=== PATIENT | female | born 1940 | race Hispanic/Latino ===

== ENCOUNTER 2017-06-22 05:54 | Inpatient (IN) | payer MEDICARE ==
[2017-06-22] VITALS (7 sets, daily range): BP systolic 138–194; BP diastolic 45–89
[~2017-06-22] VITALS: Ht 160 cm; Wt 59.0 kg
[2017-06-22] MEDS: Albuterol ud Inhalation HHN SCH ×2 (06:32→06:33)
[2017-06-22] MEDS: Ipratropium 0.02% Inh Soln 2.5ml UD HHN SCH ×7 (06:32→23:47)
--- NOTE | 2017-06-22 06:33 | Emergency Room Report ---
History of Present Illness General Chief Complaint: Upper Respiratory Illness Source: Patient Present Illness HPI 76-year-old female with pmhx breast carcinoma, status post resection, Hodgkin's lymphoma, all in remission, COPD, former smoker p/w cough fever and generalized weakness for one day. Pt states cough is productive, with clear non bloody sputum. + fever chills sob. Denies chest pain. States that her is sick , states that she had a recent hospitalization for pneumonia about a month ago at [facility] Allergies: Coded Allergies: No Known Allergies (Unverified , 06/22/17) Patient History Past Medical History: see triage record Past Surgical History: none Pertinent Family History: none Reviewed Nursing Documentation: PMH: Agreed, PSxH: Agreed Nursing Documentation-PMH Past Medical History: No History, Except For Hx Hypertension: Yes Hx COPD: Yes Hx Diabetes: Yes - dm2 Review of Systems All Other Systems: negative except mentioned in HPI Physical Exam Vital Signs Date Time Temp Pulse Resp B/P (MAP) Pulse Ox O2 Delivery O2 Flow Rate FiO2 06/22/17 05:42 99.0 137 16 229/72 96 Nasal Cannula 4.0 Sp02 EP Interpretation: reviewed, normal General Appearance: alert, GCS 15, non-toxic, moderate distress Head: normocephalic, atraumatic Eyes: bilateral eye normal inspection, bilateral eye PERRL, bilateral eye EOMI ENT: normal ENT inspection, normal pharynx, normal voice, moist mucus membranes Neck: normal inspection, full range of motion, supple Respiratory: other - mild exp wheezing b/l, tachypneic Cardiovascular #1: no edema, tachycardia Cardiovascular #2: 2+ radial (R), 2+ radial (L) Gastrointestinal: normal inspection, non tender, soft, non-distended, no guarding Musculoskeletal: normal inspection, back normal, normal range of motion, non- tender Neurologic: normal inspection, alert, oriented x3, responsive, motor strength/ tone normal, sensory intact, normal gait, speech normal Psychiatric: normal inspection, judgement/insight normal, memory normal Skin: normal inspection, normal color, no rash, warm/dry, well hydrated, normal turgor Medical Decision Making ER Course 76-year-old female with cough fever chills for one day DDX: Viral URI vs. pneumonia Plan: Routine labs, chest x-ray, EKG nebs tx Signed out patient to Dr. Hernández 76-year-old female with fever chills cough Pending labs Pending admission EKG Diagnostic Results EP Interpretation: Yes Rate: Tachycardic Rhythm: NSR ST Segments: No acute changes ASA given to patient: No Rhythm Strip EP Interpretation: Yes Rate: 117 Rhythm: NSR, no PVCs, no ectopy Last Vital Signs Date Time Temp Pulse Resp B/P (MAP) Pulse Ox O2 Delivery O2 Flow Rate FiO2 06/22/17 05:42 99.0 137 16 229/72 96 Nasal Cannula 4.0 Referrals: NON PHYSICIAN (PCP) Lien Brewer M.D. Jun 22, 2017 06:33
[2017-06-22 07:24] LABS: HEMATOCRIT 22.5 % (37.0-47.0); HEMOGLOBIN 7.1 G/DL (12.0-16.0); MEAN CORPUSCULAR VOLUME 104 FL (80-99); PLATELET COUNT 31 K/UL (150-450); RED BLOOD COUNT 2.15 M/UL (4.20-5.40); WHITE BLOOD COUNT 4.6 K/UL (4.8-10.8)
[2017-06-22] MEDS ORDERED: guaiFENesin 100mg/5ml Liq ud ORAL ONE (07:30)
[2017-06-22] MEDS ORDERED: Solu-MEDROL 125mg Inj IVP ONE (07:30)
[2017-06-22 07:32] LABS: ANION GAP 15 mmol/L (5-15); BLOOD UREA NITROGEN 31 mg/dL (7-18); CALCIUM 7.4 MG/DL (8.5-10.1); CARBON DIOXIDE 17 MMOL/L (21-32); CHLORIDE 107 MMOL/L (98-107); CREATININE 1.8 MG/DL (0.55-1.30); POTASSIUM 3.8 MMOL/L (3.5-5.1); SODIUM 139 MMOL/L (136-145)
[2017-06-22 07:47] LABS: ALANINE AMINOTRANSFERASE 16 U/L (12-78); ALBUMIN 2.7 G/DL (3.4-5.0); ALBUMIN/GLOBULIN RATIO 0.8 (1.0-2.7); ALKALINE PHOSPHATASE 69 U/L (46-116); ASPARTATE AMINO TRANSFERASE 37 U/L (15-37); BILIRUBIN,TOTAL 1.3 MG/DL (0.2-1.0); CREATINE KINASE 75 U/L (26-308)
[2017-06-22 07:48] LABS: BILIRUBIN,DIRECT 0.8 MG/DL (0.0-0.3)
[2017-06-22] MEDS ORDERED: Oseltamivir 75mg cap ORAL SCH (09:00)
[2017-06-22 09:34] LABS: APPEARANCE,URINE SLIGHTLY CLOUDY; BILIRUBIN, URINE NEGATIVE (NEGATIVE); GLUCOSE, URINE (UA) NEGATIVE (NEGATIVE); KETONES,URINE 1+ (NEGATIVE); LEUKOCYTE ESTERASE ,URINE 2+ (NEGATIVE); NITRITE,URINE NEGATIVE (NEGATIVE); PH,URINE 5 (4.5-8.0); PROTEIN,URINE 4+ (NEGATIVE); UROBILINOGEN,URINE 1 MG/DL (0.0-1.0)
[2017-06-22 09:42] LABS: COLOR,URINE YELLOW
[2017-06-22] MEDS ORDERED: cefTRIAXone 1 GM in NS 55 ML IVPB ONE (10:45)
--- NOTE | 2017-06-22 11:03 | Diagnostic Imaging Report ---
Indication: Cough Comparison: 09/04/2005 A single view chest radiograph was obtained. Findings: Vascular prominence and interstitial edema is suspected. Heart is borderline enlarged. Bones are osteopenic. Surgical clips noted in the left axilla. Left mastectomy noted. IMPRESSION: Interstitial pneumonitis versus mild CHF. Please correlate clinically. Stigmata of left breast carcinoma with mastectomy and axillary dissection
[2017-06-22] MEDS ORDERED: Nitroglycerin Subl 0.4mg tab SL PRN (14:45)
[2017-06-22] MEDS ORDERED: Milk of Magnesia 30ml Ud ORAL PRN (14:45)
--- NOTE | 2017-06-22 15:45 | Consultation ---
DATE OF CONSULTATION: 06/22/2017 PULMONARY CONSULTATION CONSULTING PHYSICIAN: Fabian Nichole M.D. CHIEF COMPLAINT: Fever and shortness of breath. HISTORY OF PRESENT ILLNESS: The patient is a 76-year-old woman with a history of distant breast cancer and mastectomy and previously treated lymphoma, who presents with fever and shortness of breath for several days. Her has been ill. She was evaluated and found to have 102 fever and some respiratory distress and admission was arranged. Influenza studies are pending. The patient did have a flu shot. The patient has a history of COPD and is on home nebulizer treatments and sees a clay artisan Dr. Frias. She has quit smoking about three years ago. She has been coughing and producing some clear sputum, but no hemoptysis. PAST MEDICAL HISTORY: Breast cancer, Hodgkin lymphoma, hypertension, COPD as noted above, and diabetes. REVIEW OF SYSTEMS: She is able to care for herself. She has no chest pain. There is no nausea, vomiting, or diarrhea. She has no ankle edema. PHYSICAL EXAMINATION: VITAL SIGNS: Showed temperature of 102. Her blood pressure was elevated at 229/72 on presentation and improved to 194/62. She is tachycardic at 145 per minute, respirations 22, and saturations 100%. GENERAL: The skin is hot and dry. The patient appears to be in mild respiratory distress. HEENT: The head is normocephalic. NECK: No jugular venous distention. CHEST: Decreased air entry. CARDIAC: Rhythm is regular. Tachycardia. ABDOMEN: Soft and nontender. EXTREMITIES: No clubbing, cyanosis, or edema. DIAGNOSTIC DATA: Chest x-ray shows no acute infiltrate. LABORATORY DATA: Laboratory studies show the white count is 4600, hematocrit is 22.5, hemoglobin 7.1, and platelet count is 31,000. There are reduced lymphocytes. Chemistry shows creatinine is 1.8, bicarbonate is 17, bilirubin is slightly elevated at 1.3, and albumin is 2.7. IMPRESSION: 1. Viral syndrome, likely influenza, serology pending. 2. Chronic obstructive pulmonary disease exacerbation. 3. Severe hypertension. 4. Severe anemia. 5. History of lymphoma and breast cancer. 6. Severe thrombocytopenia. 7. Chronic kidney disease, possible dehydration. 8. Moderate protein-calorie malnutrition. PLAN: The patient will be treated with respiratory therapy, antiviral medications, and antihypertensive treatments. She may require blood transfusion. I discussed the case with Dr. Rowland. Thank you for asking me to see her in consultation. I will follow closely with you. Fabian Nichole M.D. DRWalt RICKS JOB#: [id number] CC: Oliver Rowland M.D.; Fax#: [phone]
--- NOTE | 2017-06-22 16:30 | History and Physical Report ---
DATE OF ADMISSION: 06/22/2017 CHIEF COMPLAINT AND REASON FOR HOSPITALIZATION: The patient admitted with fever and shortness of breath. HISTORY OF PRESENT ILLNESS: The patient is a 76-year-old lady, who has a history of COPD and lymphoma with chemotherapy, last about a year ago. Apparently, she has had two courses of chemotherapy, starting five years ago. She is only a fair historian. She is in zkpi-ji-yufinkrc distress and coughing and has severe anemia. PAST SURGICAL HISTORY: Include nasal surgery and left mastectomy 29 years ago. ALLERGIES: None known. MEDICATIONS: She uses inhalers. She cannot give me any details of the medications at home at this time. HABITS: She is a cigarette smoker about a pack a day most of her life, quit about a year ago. No alcohol or drugs. SOCIAL HISTORY: She lives with her , who has dementia. SYSTEM REVIEW: HEAD, EYES, EARS, NOSE, AND THROAT: Vision and hearing are good. ENDOCRINE: No known diabetes or thyroid disease. PULMONARY: History of COPD and chronic cough. CARDIAC: No angina or NC. GASTROINTESTINAL: She had GI bleed from peptic ulcer disease approximately in June 2015. There is a history of diverticular disease of the colon. She is not having any abdominal pain now. There is an occasional rectal bleed. It is not clear if this is hemorrhoid. GENITOURINARY: No dysuria or hematuria. She is incontinent. NEUROLOGIC: No CVA or seizures. MUSCULOSKELETAL: History of generalized weakness. No swollen joints. She uses a cane at home. PHYSICAL EXAMINATION: GENERAL: The patient is seen in the emergency room. She is alert, chronically ill-appearing, in adel-ex-ckoypjnv distress. VITAL SIGNS: Temperature 102, pulse 145, respirations 22, and pulse oximetry 100%. HEAD, EYES, EARS, NOSE, AND THROAT: Sclerae are nonicteric. Ocular motions intact in all directions. Oral mucosa is slightly dry. She is edentulous. NECK: No adenopathy or thyroid enlargement. BREASTS: No masses palpated. LUNGS: Distant breath sounds. Bilateral wheezing. Chmp-cp-wrgjfpvz distress. HEART: Regular rhythm and tachycardic. I hear no murmur. ABDOMEN: Soft without organomegaly or masses. EXTREMITIES: Showed trace to 1+ edema. NEUROLOGIC: She is alert and oriented. Cranial nerves are intact. She is a little bit tremulous and a poor historian and at this time, somewhat anxious. RECTAL: No masses. Light brown stool on the glove. There is a tinge of heme-positive at the edge of the stool, but major portion of the stool is negative and perhaps is traumatic. PERTINENT LABORATORIES: White count is 4.6 and hemoglobin is 7.1. Electrolytes, sodium 139, potassium 3.8, chloride 107, CO2 17, BUN 31, and creatinine 1.8. Lactic acid 1.7. Bilirubin 1.3. Albumin 2.7. IMPRESSION: 1. Presumably influenza. 2. Chronic obstructive pulmonary disease exacerbation. 3. Severe anemia and thrombocytopenia. 4. History of lymphoma. 5. History of breast cancer. 6. History of Do Not Resuscitate directive. PLAN: The patient will be given steroids, Tamiflu, nebulizer treatment, hydration. Her condition is serious. She may have sepsis in view of her tachycardia. Pulmonary consult has been done by Dr. Nichole, and the case was discussed. The patient agrees to transfusion. Oliver Rowland M.D. DR: SMITA JOB#: [id number] CC:
[2017-06-22] MEDS: Azithromycin 250mg tab ORAL SCH (17:08)
[2017-06-22] MEDS: Solu-MEDROL 40mg Inj IVP SCH ×2 (17:08→22:39)
[2017-06-22] MEDS: HydrALAZINE 25mg tab ORAL SCH (18:53)
[2017-06-22] MEDS: Sodium Citrate 30ml ORAL SCH (20:23)
[2017-06-22] MEDS: Docusate 100mg cap ORAL SCH (21:00)
[2017-06-22] MEDS: Guaifenesin/DM 10ml syrup ORAL PRN (22:39)
[2017-06-23] MEDS: Ipratropium 0.02% Inh Soln 2.5ml UD HHN SCH ×5 (03:00→19:00)
[2017-06-23 04:46] VITALS: BP 153/66
[2017-06-23] MEDS: Solu-MEDROL 40mg Inj IVP SCH ×2 (05:55→14:07)
[2017-06-23] MEDS: NovoLOG Insulin Flexpen SUBQ SCH ×3 (07:18→17:24)
[2017-06-23 08:00] VITALS: BP 164/88
[2017-06-23] MEDS: Guaifenesin/DM 10ml syrup ORAL PRN (08:33)
[2017-06-23] MEDS: Sodium Citrate 30ml ORAL SCH ×2 (08:34→12:43)
[2017-06-23] MEDS: Azithromycin 250mg tab ORAL SCH (08:34)
[2017-06-23] MEDS: HydrALAZINE 25mg tab ORAL SCH ×3 (08:35→17:24)
[2017-06-23] MEDS: Docusate 100mg cap ORAL SCH (08:35)
[2017-06-23] MEDS ORDERED: dilTIAZem HCl CD 180mg cap ORAL SCH (09:00)
[2017-06-23] MEDS ORDERED: cefTRIAXone 1 GM in NS 55 ML IVPB SCH (09:00)
--- NOTE | 2017-06-23 09:39 | Diagnostic Imaging Report ---
Indication: Dyspnea Technique: XRAY Chest 1v Comparison: 06/22/2017 Findings: Heart size and mediastinal contours are stable. There is overall worsening of aeration with increased interstitial opacification/edema and development of hazy bilateral airspace opacities. There is persistent small right pleural effusion. There is no definite pneumothorax. No acute osseous abnormality is seen. Surgical clips noted in the left axilla. Patient again noted to be status post left mastectomy. Impression: Overall worsening of aeration bilaterally with increasing interstitial opacification and development of patchy bilateral airspace opacities. Findings may be related to worsening CHF. Multifocal pneumonia or additional etiologies not entirely excluded. Clinical correlation and follow-up exam recommended.
--- NOTE | 2017-06-23 10:51 | General Progress Note ---
Assessment/Plan Problem List: (1) Lymphoma ICD Codes: C85.90 - Non-Hodgkin lymphoma, unspecified, unspecified site SNOMED: 229650011 (2) Pancytopenia ICD Codes: D61.818 - Other pancytopenia SNOMED: 121693938 (3) COPD with exacerbation ICD Codes: J44.1 - Chronic obstructive pulmonary disease with (acute) exacerbation SNOMED: 238618021524275 (4) CHF (congestive heart failure), NYHA class III ICD Codes: I50.9 - Heart failure, unspecified SNOMED: 482824753, 022062623 (5) Bronchitis ICD Codes: J40 - Bronchitis, not specified as acute or chronic SNOMED: 19332766 (6) COPD (chronic obstructive pulmonary disease) ICD Codes: J44.9 - Chronic obstructive pulmonary disease, unspecified SNOMED: 64183058 (7) Upper respiratory infection ICD Codes: J06.9 - Acute upper respiratory infection, unspecified SNOMED: 92778723 (8) Flu-like symptoms ICD Codes: R68.89 - Other general symptoms and signs SNOMED: 792051659 Assessment/Plan transfused,lasix,steroids,hhn Subjective Constitutional: Reports: weakness HEENT: Reports: no symptoms Cardiovascular: Reports: palpitations Respiratory: Reports: SOB at rest Gastrointestinal/Abdominal: Reports: no symptoms Genitourinary: Reports: frequency Neurologic/Psychiatric: Reports: no symptoms Endocrine: Reports: no symptoms Allergies: Coded Allergies: No Known Allergies (Unverified , 06/22/17) Objective Last 24 Hour Vital Signs Date Time Temp Pulse Resp B/P (MAP) Pulse Ox O2 Delivery O2 Flow Rate FiO2 06/23/17 08:35 164/88 06/23/17 08:35 164/88 06/23/17 08:34 112 164/88 06/23/17 08:00 96.4 112 20 164/88 100 Nasal Cannula 2.0 06/23/17 07:47 109 20 100 Nasal Cannula 2.0 06/23/17 07:47 104 25 99 Nasal Cannula 2.0 28 06/23/17 07:47 99 Nasal Cannula 2.0 28 06/23/17 07:47 Nasal Cannula 2.0 06/23/17 07:03 96.8 06/23/17 06:23 103 103 06/23/17 04:46 96.8 103 19 153/66 92 Room Air 06/23/17 04:00 101 06/23/17 03:41 Nasal Cannula 06/23/17 03:41 Nasal Cannula 06/23/17 00:00 107 06/22/17 23:47 104 25 99 Nasal Cannula 2.0 06/22/17 23:47 116 20 100 Nasal Cannula 2.0 06/22/17 21:24 113 06/22/17 21:10 102.0 107 30 171/65 99 Nasal Cannula 2.0 06/22/17 21:00 107 30 171/65 99 Nasal Cannula 2.0 06/22/17 21:00 Room Air 06/22/17 21:00 Room Air 06/22/17 20:59 Room Air 06/22/17 19:30 112 20 99 Nasal Cannula 2.0 06/22/17 19:30 109 25 94 Nasal Cannula 2.0 06/22/17 19:00 106 18 138/89 100 Room Air 06/22/17 18:55 177/70 06/22/17 18:53 177/70 06/22/17 16:00 145 33 174/72 100 Room Air 06/22/17 14:51 110 22 99 Nasal Cannula 2.0 06/22/17 14:41 109 22 98 Nasal Cannula 2.0 06/22/17 13:30 112 35 166/69 100 Room Air 06/22/17 11:00 121 40 155/54 98 Room Air 06/22/17 10:56 130 24 99 Nasal Cannula 2.0 28 Intake and Output 06/22/17 06/23/17 19:00 07:00 Output Total 400 ml Balance -400 ml Output Urine Total 400 ml # Bowel Movements 1 Laboratory Tests 06/22/17 20:10: Vitamin B12 Level > 2000H Height (Feet): 5 Height (Inches): 3.00 Weight (Pounds): 130 General Appearance: moderate distress EENT: normal ENT inspection Neck: normal alignment Cardiovascular: regular rhythm Respiratory/Chest: respiratory distress, accessory muscle use, rhonchi - bilaterally Abdomen: non tender Extremities: no calf tenderness Edema: trace edema Neurologic: bread packer II-XII grossly normal JOEL CAMPUZANO Jun 23, 2017 10:51
[2017-06-23] MEDS ORDERED: Spironolactone 25mg tab ORAL SCH (11:00)
[2017-06-23 12:00] VITALS: BP 156/76
[2017-06-23 12:07] LABS: HEMATOCRIT 29.2 % (37.0-47.0); HEMOGLOBIN 9.6 G/DL (12.0-16.0); MEAN CORPUSCULAR VOLUME 96 FL (80-99); PLATELET COUNT 49 K/UL (150-450); RED BLOOD COUNT 3.05 M/UL (4.20-5.40); RED CELL DISTRIBUTION WIDTH 18.8 % (11.6-14.8); WHITE BLOOD COUNT 12.6 K/UL (4.8-10.8)
[2017-06-23 12:17] LABS: ALANINE AMINOTRANSFERASE 20 U/L (12-78); ALBUMIN 2.5 G/DL (3.4-5.0); ALBUMIN/GLOBULIN RATIO 0.7 (1.0-2.7); ALKALINE PHOSPHATASE 60 U/L (46-116); ANION GAP 19 mmol/L (5-15); ASPARTATE AMINO TRANSFERASE 66 U/L (15-37); BLOOD UREA NITROGEN 54 mg/dL (7-18); CALCIUM 7.4 MG/DL (8.5-10.1); CARBON DIOXIDE 15 MMOL/L (21-32); CHLORIDE 103 MMOL/L (98-107); CREATININE 1.9 MG/DL (0.55-1.30); POTASSIUM 4.5 MMOL/L (3.5-5.1); SODIUM 137 MMOL/L (136-145)
[2017-06-23] MEDS ORDERED: Imdur 30mg tab ORAL SCH (13:00)
[2017-06-23] MEDS ORDERED: Metoprolol Tartrate 12.5mg TAB ORAL SCH (13:00)
--- NOTE | 2017-06-23 13:19 | Pulmonology Progress Note ---
Assessment/Plan Assessment/Plan 1. Viral syndrome, possible influenza, serology neg. 2. Chronic obstructive pulmonary disease exacerbation. 3. Severe hypertension. 4. Severe anemia, transfused. 5. History of lymphoma and breast cancer. 6. Severe thrombocytopenia, better 7. Chronic kidney disease 8. Moderate protein-calorie malnutrition. 9. CHF 10. NSTEMI disc w son, Dr Rowland looks better troponin high BNP >35k lower dose Tamiflu Lasix HHN Subjective Allergies: Coded Allergies: No Known Allergies (Unverified , 06/22/17) Objective Last 24 Hour Vital Signs Date Time Temp Pulse Resp B/P (MAP) Pulse Ox O2 Delivery O2 Flow Rate FiO2 06/23/17 12:50 164/88 06/23/17 10:50 105 20 100 Nasal Cannula 2.0 06/23/17 10:45 101 24 98 Nasal Cannula 2.0 06/23/17 08:35 164/88 06/23/17 08:35 164/88 06/23/17 08:34 112 164/88 06/23/17 08:00 96.4 112 20 164/88 100 Nasal Cannula 2.0 06/23/17 07:47 109 20 100 Nasal Cannula 2.0 28 06/23/17 07:47 104 25 99 Nasal Cannula 2.0 28 06/23/17 07:47 99 Nasal Cannula 2.0 28 06/23/17 07:47 Nasal Cannula 2.0 06/23/17 07:03 96.8 06/23/17 06:23 103 103 06/23/17 04:46 96.8 103 19 153/66 92 Room Air 06/23/17 04:00 101 06/23/17 03:41 Nasal Cannula 06/23/17 03:41 Nasal Cannula 06/23/17 00:00 107 06/22/17 23:47 104 25 99 Nasal Cannula 2.0 28 06/22/17 23:47 116 20 100 Nasal Cannula 2.0 06/22/17 21:24 113 06/22/17 21:10 102.0 107 30 171/65 99 Nasal Cannula 2.0 28 06/22/17 21:00 107 30 171/65 99 Nasal Cannula 2.0 06/22/17 21:00 Room Air 06/22/17 21:00 Room Air 06/22/17 20:59 Room Air 06/22/17 19:30 112 20 99 Nasal Cannula 2.0 28 06/22/17 19:30 109 25 94 Nasal Cannula 2.0 28 06/22/17 19:00 106 18 138/89 100 Room Air 06/22/17 18:55 177/70 06/22/17 18:53 177/70 06/22/17 16:00 145 33 174/72 100 Room Air 06/22/17 14:51 110 22 99 Nasal Cannula 2.0 06/22/17 14:41 109 22 98 Nasal Cannula 2.0 28 06/22/17 13:30 112 35 166/69 100 Room Air Intake and Output 06/22/17 06/23/17 19:00 07:00 Output Total 400 ml Balance -400 ml Output Urine Total 400 ml # Bowel Movements 1 Microbiology Date/Time Source Procedure Growth Status 06/22/17 08:00 Nasal Nares Influenza Types A,B Antigen (SAMUEL) - Final Complete 06/22/17 08:45 Urine,Clean Catch Urine Culture - Preliminary Gram Negative Eliseo Resulted Laboratory Tests 06/22/17 20:10: Vitamin B12 Level > 2000H 06/23/17 11:30: White Blood Count 12.6#H, Red Blood Count 3.05L, Hemoglobin 9.6#L, Hematocrit 29.2L, Mean Corpuscular Volume 96, Mean Corpuscular Hemoglobin 31.5H, Mean Corpuscular Hemoglobin Concent 32.9, Red Cell Distribution Width 18.8H, Platelet Count 49#L, Mean Platelet Volume 12.2H, Neutrophils (%) (Auto) , Lymphocytes (%) (Auto) , Monocytes (%) (Auto) , Eosinophils (%) (Auto) , Basophils (%) (Auto) , Differential Total Cells Counted 100, Neutrophils % ( Manual) 84H, Lymphocytes % (Manual) 3L, Monocytes % (Manual) 8, Eosinophils % ( Manual) 0, Basophils % (Manual) 0, Band Neutrophils 5, Platelet Estimate DecreasedL, Platelet Morphology Normal, Hypochromasia , Anisocytosis 1+, Sodium Level 137, Potassium Level 4.5, Chloride Level 103, Carbon Dioxide Level 15L, Anion Gap 19H, Blood Urea Nitrogen 54H, Creatinine 1.9H, Estimat Glomerular Filtration Rate , Glucose Level 288#H, Calcium Level 7.4L, Total Bilirubin 1.0, Aspartate Amino Transf (AST/SGOT) 66H, Alanine Aminotransferase (ALT/SGPT) 20, Alkaline Phosphatase 60, Troponin I 9.110H, Pro-B-Type Natriuretic Peptide > 50508G, Total Protein 5.9L, Albumin 2.5L, Globulin 3.4, Albumin/Globulin Ratio 0.7L Current Medications Medications (Trade) Dose Ordered Sig/Lorena Route PRN Reason Start Time Stop Time Status Last Admin Dose Admin Acetaminophen (Tylenol) 650 mg Q4H PRN ORAL Mild Pain (Pain Scale 1-3) 06/22/17 14:45 07/22/17 14:44 06/23/17 05:56 Acetaminophen (Tylenol) 650 mg Q4H PRN ORAL fever 06/22/17 14:45 07/22/17 14:44 Azithromycin (Zithromax) 250 mg DAILY ORAL 06/22/17 17:00 06/29/17 16:59 06/23/17 08:34 Ceftriaxone Sodium 1 gm/ Sodium Chloride 55 ml @ 110 mls/hr DAILY IVPB 06/23/17 09:00 06/30/17 08:59 06/23/17 12:43 Clonidine HCl (Catapres) 0.1 mg BID ORAL 06/22/17 18:00 07/22/17 17:59 06/23/17 08:35 Dextrose (Dextrose 50%) STAT PRN IV Hypoglycemia 06/22/17 14:45 07/22/17 14:44 Dextrose (Dextrose 50%) STAT PRN IV Hypoglycemia 06/22/17 21:45 07/22/17 21:44 Diltiazem HCl (Cardizem CD) 180 mg DAILY ORAL 06/23/17 09:00 07/23/17 08:59 06/23/17 08:34 Docusate Sodium (Colace) 100 mg EVERY 12 HOURS ORAL 06/22/17 21:00 07/22/17 20:59 06/23/17 08:35 Furosemide (Lasix) 40 mg BID IV 06/23/17 11:00 07/23/17 10:59 06/23/17 12:44 Guaifenesin/ Dextromethorphan (Robitussin DM Syrup) 10 ml Q4H PRN ORAL For Cough 06/22/17 21:45 07/22/17 21:44 06/23/17 08:33 Hydralazine HCl (Apresoline) 25 mg TID ORAL 06/22/17 18:00 07/22/17 17:59 06/23/17 12:50 Insulin Aspart (NovoLOG) BEFORE MEALS AND HS SUBQ 06/23/17 06:30 07/23/17 06:29 06/23/17 12:49 Ipratropium [place] (Atrovent) 500 mcg Q4HRT HHN 06/22/17 10:00 06/27/17 09:59 06/23/17 10:48 Isosorbide Mononitrate (Imdur) 30 mg DAILY ORAL 06/23/17 13:00 07/23/17 12:59 Magnesium Hydroxide (Mom) 30 ml HSPRN PRN ORAL Constipation 06/22/17 14:45 07/22/17 14:44 Methylprednisolone Sodium Succinate (Solu-MEDROL) 40 mg EVERY 8 HOURS IVP 06/22/17 14:00 07/22/17 13:59 06/23/17 05:55 Metoprolol Tartrate (Lopressor) 12.5 mg Q12HR ORAL 06/23/17 13:00 07/23/17 12:59 Nitroglycerin (Ntg) 0.4 mg Q5M PRN SL Prn Chest Pain 06/22/17 14:45 07/22/17 14:44 Oseltamivir Phosphate (Tamiflu) 30 mg DAILY ORAL 06/23/17 09:00 06/27/17 08:59 06/23/17 09:12 Pantoprazole (Protonix) 40 mg DAILY ORAL 06/23/17 09:00 07/23/17 08:59 06/23/17 08:34 Potassium Chloride (K-Dur) 40 meq TWICE A DAY ORAL 06/23/17 11:00 07/23/17 10:59 06/23/17 12:45 Sodium Citrate (Bicitra) 30 ml TID ORAL 06/22/17 18:00 07/22/17 17:59 06/23/17 08:34 Spironolactone (Aldactone) 25 mg DAILY ORAL 06/23/17 11:00 07/23/17 10:59 06/23/17 12:44 CARMELITA UPTON Jun 23, 2017 13:19
--- NOTE | 2017-06-23 15:31 | Progress Note ---
DATE: 06/23/2017 CARDIOLOGY PROGRESS NOTE SUBJECTIVE: Blood pressure parameters remained elevated. The patient has less congestion and shortness of breath. She has temperatures up to 102 yesterday, but is afebrile today. OBJECTIVE: VITAL SIGNS: Blood pressure 153/66, pulse 103, and respirations 19. LUNGS: With rhonchi. CARDIAC: Regular. Normal S1 and S2. ABDOMEN: Soft. EXTREMITIES: No edema. LABORATORY DATA: Pending. IMPRESSION: 1. Influenza A respiratory infection. 2. Hypertensive urgency secondary to sinus tachycardia. 3. History of breast cancer and lymphoma. 4. Chronic obstructive pulmonary disease. 5. Anemia and thrombocytopenia. PLAN: 1. Continue steroids. 2. Inhaled bronchodilators. 3. Tamiflu. 4. Hydrate with hypotonic fluids with caution. 5. Continue hydralazine. 6. Add diltiazem, suboptimal blood pressure control. 7. Monitor volume status. 8. Check natriuretic peptide assay. 9. No additional diuresis planned at present. Allan Borrego M.D. DR: THIEN JOB#: [id number] CC:
--- NOTE | 2017-06-23 15:31 | Consultation ---
DATE OF CONSULTATION: 06/22/2017 CONSULTING PHYSICIAN: Allan Borrego M.D. REQUESTING PHYSICIAN: Oliver Rowland M.D. REASON FOR CONSULTATION: Evaluate for congestive heart failure in the setting of shortness of breath. HISTORY OF PRESENT ILLNESS: This is a 76-year-old female with history of breast cancer, mastectomy, and Hodgkin's lymphoma with chemotherapy, who presents to the emergency room with fevers and shortness of breath of several days duration. She apparently has ill contact at home, namely her . She has received the flu shot. She does have a history of chronic obstructive pulmonary disease. She is on chronic bronchodilator and she quit smoking only 3 years ago. The patient has not had any chest pain. No leg swelling. She has a history of severe hypertension but is unaware of any history of heart failure. PAST MEDICAL HISTORY: Breast cancer, Hodgkin's lymphoma, hypertension, COPD, and diabetes mellitus. REVIEW OF SYSTEMS: Otherwise unremarkable. MEDICATIONS: Reviewed and reconciled. SOCIAL HISTORY: The patient is 30 to 40 pack a year smoker. No alcohol or substance abuse. Just quit smoking less than year ago. PHYSICAL EXAMINATION: VITAL SIGNS: Temperature 102, blood pressure 229/72 in the emergency room, heart rate 145, respiratory rate 22. Vital signs today 171/65, pulse 107, respirations 30. Afebrile. LUNGS: Diminished breath sounds. No wheezing or rales. NECK: Jugular venous pressure normal. CARDIAC: Regular rhythm. Rapid rate. Normal S1, S2 with a fourth heart sound. ABDOMEN: Soft. EXTREMITIES: There is no extra edema of the extremities. LABORATORY DATA: Reviewed. IMPRESSION: 1. Viral syndrome. 2. Chronic obstructive pulmonary disease exacerbation. 3. Hypertensive urgency . 4. Anemia of chronic kidney disease. 5. History of lymphoma and breast cancer in remission from . 6. Chronic kidney disease. 7. Protein-calorie malnutrition. 8. Secondary sinus tachycardia. PLAN: 1. Antiviral therapy. 2. Respiratory hygiene. 3. Monitor blood counts and chemistry panel. 4. Transfuse if hemoglobin is less than 8 g. 5. Titrate antihypertensive regimen with caution. 6. Continue cardiac monitoring, presently no signs of volume overload. 7. No indication for diuresis. Allan Borrego M.D. DR: ROXANA JOB#: [id number] CC:
[2017-06-23 16:00] VITALS: BP 127/20
[2017-06-23] MEDS ORDERED: Sodium Bicarbonate 650mg Tab ORAL SCH (18:00)
[2017-06-23] MEDS ORDERED: Atorvastatin 80mg tab ORAL SCH (20:00)
[2017-06-23] MEDS ORDERED: Aspirin Baby 81mg ORAL SCH (20:00)
[2017-06-23 20:15] VITALS: BP 149/79
--- NOTE | 2017-06-23 20:18 | Cardiology Progress Note ---
Assessment/Plan Assessment/Plan INVASIVE CARDIOLOGY CONSULT 1. Acute anterolateral STEMI, ? the onset of the chest pain, first positive trop at 11:30 today, cardiology specialist, Dr. Rogers was notified for emergent transfer of the patient to [facility]. Loading dose of plavix 300mg and ASA 81mg were given after checking with the pharmacist. Due to thrombocytopenia, heparin derivatives are contra-indicated. Metoprolol dose was increased to decrease double product. Atorvastatin 80mg was given. Continue lasix. 2. Acute heart failure, echo is pending, Diltiazem is discontinued. Will continue aldactone. 3. BRINA, ? baseline creat, could be worse with the diuretics. 4. Thrombocytopenia, the etiology unknown. Subjective Subjective Sinus rhythm at 70. The patient has 5-6/10 pressure like chest pain. She has 4 pillow orthopnea and SOB at rest. Objective Last 24 Hour Vital Signs Date Time Temp Pulse Resp B/P (MAP) Pulse Ox O2 Delivery O2 Flow Rate FiO2 06/23/17 17:25 127/20 06/23/17 17:24 127/20 06/23/17 16:00 82 06/23/17 16:00 97.0 85 18 127/20 97 Nasal Cannula 2.0 06/23/17 14:53 107 20 100 Nasal Cannula 2.0 06/23/17 14:50 100 24 90 Nasal Cannula 2.0 06/23/17 14:07 102 156/76 06/23/17 14:06 150/72 06/23/17 12:50 164/88 06/23/17 12:00 96.8 102 20 156/76 94 Nasal Cannula 2.0 06/23/17 12:00 101 06/23/17 10:50 105 20 100 Nasal Cannula 2.0 06/23/17 10:45 101 24 98 Nasal Cannula 2.0 28 06/23/17 08:35 164/88 06/23/17 08:35 164/88 06/23/17 08:34 112 164/88 06/23/17 08:00 96.4 112 20 164/88 100 Nasal Cannula 2.0 06/23/17 08:00 117 06/23/17 07:47 109 20 100 Nasal Cannula 2.0 06/23/17 07:47 104 25 99 Nasal Cannula 2.0 06/23/17 07:47 99 Nasal Cannula 2.0 06/23/17 07:47 Nasal Cannula 2.0 28 06/23/17 07:03 96.8 06/23/17 06:23 103 103 06/23/17 04:46 96.8 103 19 153/66 92 Room Air 06/23/17 04:00 101 06/23/17 03:41 Nasal Cannula 06/23/17 03:41 Nasal Cannula 06/23/17 00:00 107 06/22/17 23:47 104 25 99 Nasal Cannula 2.0 06/22/17 23:47 116 20 100 Nasal Cannula 2.0 06/22/17 21:24 113 06/22/17 21:10 102.0 107 30 171/65 99 Nasal Cannula 2.0 06/22/17 21:00 107 30 17165 99 Nasal Cannula 2.0 06/22/17 21:00 Room Air 06/22/17 21:00 Room Air 06/22/17 20:59 Room Air Intake and Output 06/22/17 06/23/17 19:00 07:00 Output Total 400 ml Balance -400 ml Output Urine Total 400 ml # Bowel Movements 1 2D Echo: Pending Laboratory Tests Test 06/22/17 20:10 06/23/17 11:30 06/23/17 19:23 Vitamin B12 Level > 2000 PG/ML (193-986) H White Blood Count 12.6 K/UL (4.8-10.8) #H Red Blood Count 3.05 M/UL (4.20-5.40) L Hemoglobin 9.6 G/DL (12.0-16.0) #L Hematocrit 29.2 % (37.0-47.0) L Mean Corpuscular Volume 96 FL (80-99) Mean Corpuscular Hemoglobin 31.5 PG (27.0-31.0) H Mean Corpuscular Hemoglobin Concent 32.9 G/DL (32.0-36.0) Red Cell Distribution Width 18.8 % (11.6-14.8) H Platelet Count 49 K/UL (150-450) #L Mean Platelet Volume 12.2 FL (6.5-10.1) H Neutrophils (%) (Auto) % (45.0-75.0) Lymphocytes (%) (Auto) % (20.0-45.0) Monocytes (%) (Auto) % (1.0-10.0) Eosinophils (%) (Auto) % (0.0-3.0) Basophils (%) (Auto) % (0.0-2.0) Differential Total Cells Counted 100 Neutrophils % (Manual) 84 % (45-75) H Lymphocytes % (Manual) 3 % (20-45) L Monocytes % (Manual) 8 % (1-10) Eosinophils % (Manual) 0 % (0-3) Basophils % (Manual) 0 % (0-2) Band Neutrophils 5 % (0-8) Platelet Estimate Decreased L Platelet Morphology Normal Hypochromasia Anisocytosis 1+ Sodium Level 137 MMOL/L (136-145) Potassium Level 4.5 MMOL/L (3.5-5.1) Chloride Level 103 MMOL/L (98-107) Carbon Dioxide Level 15 MMOL/L (21-32) L Anion Gap 19 mmol/L (5-15) H Blood Urea Nitrogen 54 mg/dL (7-18) H Creatinine 1.9 MG/DL (0.55-1.30) H Estimat Glomerular Filtration Rate mL/min (>60) Glucose Level 288 MG/DL (74-106) #H Calcium Level 7.4 MG/DL (8.5-10.1) L Total Bilirubin 1.0 MG/DL (0.2-1.0) Aspartate Amino Transf (AST/SGOT) 66 U/L (15-37) H Alanine Aminotransferase (ALT/SGPT) 20 U/L (12-78) Alkaline Phosphatase 60 U/L (46-116) Troponin I 9.110 ng/mL (0.000-0.056) Pending Pro-B-Type Natriuretic Peptide > 61759 pg/mL (0-125) H Total Protein 5.9 G/DL (6.4-8.2) L Albumin 2.5 G/DL (3.4-5.0) L Globulin 3.4 g/dL Albumin/Globulin Ratio 0.7 (1.0-2.7) L Microbiology Date/Time Source Procedure Growth Status 06/22/17 08:00 Nasal Nares Influenza Types A,B Antigen (SAMUEL) - Final Complete 06/22/17 08:45 Urine,Clean Catch Urine Culture - Preliminary Gram Negative Eliseo Resulted Objective HEENT: Normocephalic, Atraumatic, PERRLA, EOMI. NECK: Elevated JVD at 12 cm LUNGS: Diminished breath sounds with crackles CARDIAC: Regular rate rhythm. Distant S1, S2, cannot appreciate S# or S4. ABDOMEN: Soft, non-tender, non-distended. EXTREMITIES: B/L 2+ ankle edema MAY HERRING Jun 23, 2017 20:18
[2017-06-23] MEDS ORDERED: Metoprolol 25mg tab ORAL SCH (21:00)
--- NOTE | 2017-06-25 05:00 | Discharge Summary ---
DATE OF ADMISSION: 06/22/2017 DATE OF DISCHARGE: 06/23/2017 PERTINENT HISTORY: The patient admitted with fever and shortness of breath. There is history of COPD, prior treatment of lymphoma, chronic anemia, thrombocytopenia, diabetes. PERTINENT PHYSICAL FINDINGS: See the dictated history and physical. GENERAL: She is in moderate distress. VITAL SIGNS: She had temperature of 102, pulse 145. HEAD, EYES, EARS, NOSE, THROAT: Oral mucosa is slightly dry. She is edentulous. LUNGS: Distant breath sounds. Bilateral wheezing. Moderate distress. HEART: Regular rhythm and tachycardic. No murmur. ABDOMEN: Soft without organomegaly. EXTREMITIES: Trace to 1+ edema. NEUROLOGIC: She is a little tremulous. No focal findings. COURSE IN THE HOSPITAL: The patient was treated for acute exacerbation of COPD, CHF, possible influenza. She had hemoglobin of 7.1 and agreed to transfusion, which was done and hemoglobin came to 9.6. The patient also had evidence of chronic kidney disease, stage 3. She was diuresed for CHF. She was given broad-spectrum antibiotics for possible pneumonitis. The influenza test came back negative. She did develop an elevated troponin and was seen in cardiology consultation by Dr. Faulkner. After discussion with Dr. Faulkner, he arranged transfer to [facility] for possible cardiac catheterization. FINAL DIAGNOSES: 1. Chronic obstructive pulmonary disease with acute exacerbation. 2. Congestive heart failure, acute on chronic, with diastolic dysfunction. 3. Acute myocardial infarction. 4. Chronic kidney disease, stage 3. 5. History of lymphoma. 6. Severe anemia, requiring transfusion. 7. Thrombocytopenia. DISCHARGE DISPOSITION: The patient was discharged to [facility] for cardiac catheterization and further evaluation by cardiology and her prior doctors who have been following her for years at [facility]. Orders will be reassessed when she arrives to [facility] by her accepting physicians. Oliver Rowland M.D. DR: DOLORES JOB#: [id number] CC:
--- NOTE | 2017-06-27 19:27 | Cardiology Report ---
APPROVED REPORT EKG Measurement Heart [id number] Suspect arm lead reversal, interpretation assumes no reversal Normal sinus rhythm Septal infarct, age undetermined Lateral infarct, age undetermined T wave abnormality, consider inferior ischemia T wave abnormality, consider anterior ischemia Prolonged QT Abnormal ECG
--- NOTE | 2017-06-27 19:35 | Cardiology Report ---
APPROVED REPORT EKG Measurement Heart [id number] ID [id number] Sinus tachycardia Otherwise normal ECG
== END 2017-06-23 21:00 | disposition short-term general hospital (02) | DRG 190 ==
LOC: EDBD 05:54 → EMR 06:01 → 2E 07:15 → EDBEDREQ 16:10 → 2E 17:24
PROC: 30233N1 Transfusion of Nonautologous Red Blood Cells into Peripheral Vein, Percutaneous Approach (ICD-10-PCS; principal; 2017-06-23)
DX: J44.1 Chronic obstructive pulmonary disease with (acute) exacerbation (principal); I50.33 Acute on chronic diastolic (congestive) heart failure; I21.09 ST elevation (STEMI) myocardial infarction involving other coronary artery of anterior wall; E44.0 Moderate protein-calorie malnutrition; D69.6 Thrombocytopenia, unspecified; E11.22 Type 2 diabetes mellitus with diabetic chronic kidney disease; E86.0 Dehydration; N18.3 Chronic kidney disease, stage 3 (moderate); Z66 Do not resuscitate; I12.9 Hypertensive chronic kidney disease with stage 1 through stage 4 chronic kidney disease, or unspecified chronic kidney disease; R00.0 Tachycardia, unspecified; I16.0 Hypertensive urgency; D63.1 Anemia in chronic kidney disease; Z85.3 Personal history of malignant neoplasm of breast; Z87.891 Personal history of nicotine dependence; Z68.23 Body mass index [BMI] 23.0-23.9, adult; Z85.72 Personal history of non-Hodgkin lymphomas; Z90.12 Acquired absence of left breast and nipple
CPT/HCPCS: 36415; 71010; 80053; 81003; 82248; 82550; 82607; 82962; 83605; 83880; 84484; 85007; 85025; 86710; 86850; 86900; 86901; 86920; 87040; 87086; 87181; 93005; 94640; 94664; 94760; 99285; J1815; J8499